=== PATIENT | male | born 1970 | race Hispanic/Latino ===

== ENCOUNTER 2020-04-10 11:10 | Emergency (ER) | payer MEDICAID, OTHER ==
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
[2020-04-10] MEDS ORDERED: Acetaminophen 500 MG TAB ONE (12:16)
[2020-04-10] MEDS ORDERED: Ketorolac Tromethamine 30 MG/ML VIAL ONE (12:28)
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
== END 2020-04-10 13:01 | disposition home or self-care (01) ==
LOC: ERS 11:10
DX: S40.212A Abrasion of left shoulder, initial encounter (principal); K21.9 Gastro-esophageal reflux disease without esophagitis; V89.2XXA Person injured in unspecified motor-vehicle accident, traffic, initial encounter; W22.11XA Striking against or struck by driver side automobile airbag, initial encounter
CPT/HCPCS: 70450; 71045; 72125; 96372; J1885